=== PATIENT | male | born 1935 | race Caucasian/White ===

== ENCOUNTER 2018-02-11 00:13 | Emergency (ER) | payer MEDICARE ==
[~2018-02-11 00:13] MED LIST: ACET-2743 PO; ALLO100T PO; ASPI-1005 PO; CARV12.511 PO; CERT200K SQ; CHOL200013 PO; DOXA2TAB2 PO; FERR325C PO; FISH1CAP49 PO; FLUT1BLS IH; FOLI1TAB61 PO; GABA300S PO; ISOS30TA6 PO; LEFL20TA18 PO; OMEP20CA10 PO; PRED10TA23 PO; TRAM50TA4 PO; VITA400C70 PO
[2018-02-11] MEDS ORDERED: FENTANYL CITRATE PF 50 MCG/1 ML 2ML VIAL ONE (00:36)
== END 2018-02-11 03:43 | disposition home or self-care (01) ==
LOC: EDH 00:13
DX: S00.83XA Contusion of other part of head, initial encounter (principal); S40.811A Abrasion of right upper arm, initial encounter; S40.212A Abrasion of left shoulder, initial encounter; I25.10 Atherosclerotic heart disease of native coronary artery without angina pectoris; I48.91 Unspecified atrial fibrillation; M06.9 Rheumatoid arthritis, unspecified; Z95.1 Presence of aortocoronary bypass graft; Z88.8 Allergy status to other drugs, medicaments and biological substances; Z88.5 Allergy status to narcotic agent; Z91.013 Allergy to seafood; W18.39XA Other fall on same level, initial encounter; Y93.89 Activity, other specified; Y92.89 Other specified places as the place of occurrence of the external cause; Y99.8 Other external cause status
CPT/HCPCS: 70450; 71045; 72125; 72170; 73110; 96374; 99284; J3010

== ENCOUNTER 2018-02-13 07:59 | Emergency (ER) | payer MEDICARE ==
[2018-02-13 08:34] LABS: BASOPHILS % (AUTO) 0.6 % (0.0-5.0); EOSINOPHILS % (AUTO) 0.9 % (0.0-8.0); HEMATOCRIT 32.7 % (42-54); LYMPHOCYTES % (AUTO) 20.4 % (21.0-51.0); MEAN CORPUSCULAR HEMOGLOBIN 30.9 pg (27.0-33.0); MEAN CORPUSCULAR HGB CONC 34.1 g/dL (32.0-36.0); MEAN CORPUSCULAR VOLUME 90.6 fL (79-99); MONOCYTES % (AUTO) 11.3 % (3.0-13.0); NEUTROPHILS % (AUTO) 66.8 % (40.0-77.0); NUCLEATED RED BLOOD CELLS 0.1 % (0.0-0.19); PLATELET COUNT (AUTO) 126 K/uL (130-400); RED BLOOD CELL COUNT(AUTO) 3.61 MIL/uL (4.50-6.20); RED CELL DISTRIBUTION WIDTH 16.7 % (11.0-15.5); WHITE BLOOD COUNT (AUTO) 6.8 K/uL (4.8-10.8)
[2018-02-13] MEDS ORDERED: IOPAMIDOL-370 100 ML VIAL IV ONE (08:43)
[2018-02-13] MEDS ORDERED: HEPARIN SODIUM 1000UNIT/ML 10ML VIAL ONE (08:43)
[2018-02-13] MEDS ORDERED: ISOVUE-370 50ML VIAL IV ONE (08:43)
[2018-02-13] MEDS ORDERED: BIVALIRUDIN 250 MG/VIAL IV ONE (08:43)
[2018-02-13] MEDS ORDERED: LIDOCAINE HCL 1% 20 ML VIAL ONE (08:44)
[2018-02-13] MEDS ORDERED: PROPOFOL 1000 MG/100 ML 100 ML IV ONE (08:46)
[2018-02-13] MEDS ORDERED: EPINEPHRINE 1 MG/ML 30ML VIAL IJ ONE (08:53)
[2018-02-13 08:54] LABS: CREATININE 3.6 mg/dL (0.5-1.5); TOTAL PROTEIN, SERUM 7.6 g/dL (6.0-8.3)
[2018-02-13] MEDS ORDERED: SODIUM CHLORIDE 0.9% 250 ML IV ONE (08:57)
[2018-02-13] MEDS ORDERED: CALCIUM GLUCONATE 1 GM/10 ML VIAL IV ONE (08:59)
[2018-02-13 09:06] LABS: B-TYPE NATRIURETIC PEPTIDE 1060 pg/mL (0-100)
[2018-02-13] MEDS ORDERED: AMIODARONE HCL 900MG/18ML IV ONE (09:06)
[2018-02-13] MEDS ORDERED: INSULIN HUMULIN R 100 UNIT/ML 3ML ONE (09:08)
[2018-02-13] MEDS ORDERED: AMIODARONE HCL 900 MG in DEXTROSE 5%-WATER 500 ML IV NR (09:11)
[2018-02-13 09:23] LABS: CREATINE KINASE MB 1.5 ng/mL (0.5-3.6)
[2018-02-13] MEDS ORDERED: CALCIUM CHLORIDE 100 MG/ML 10 ML SYG IVP ONE (12:00)
[2018-02-13] MEDS ORDERED: DEXTROSE 50%-WATER 50 ML DISP.SYRIN IV ONE (12:00)
[2018-02-13] MEDS ORDERED: EPINEPHRINE 0.1 MG/ML 10 ML SYG IVP ONE (12:00)
[2018-02-13] MEDS ORDERED: ROCURONIUM BROMIDE 10MG/1ML 5ML VL IV ONE (12:00)
[2018-02-13] MEDS ORDERED: ATROPINE SULFATE 0.1 MG/ML 10 ML SYG IVP ONE (12:00)
[2018-02-13] MEDS ORDERED: SODIUM BICARB 8.4% 50ML SYRINGE IVP ONE (12:00)
[2018-02-13] MEDS ORDERED: AMIODARONE HCL 50 MG/ML 3 ML VIAL IV ONE (12:00)
== END 2018-02-13 11:59 | disposition expired ==
LOC: EDH 07:59
DX: I46.9 Cardiac arrest, cause unspecified (principal); I21.9 Acute myocardial infarction, unspecified; E87.5 Hyperkalemia; I50.9 Heart failure, unspecified; N17.9 Acute kidney failure, unspecified; I48.91 Unspecified atrial fibrillation; I25.10 Atherosclerotic heart disease of native coronary artery without angina pectoris; M06.9 Rheumatoid arthritis, unspecified; Z95.1 Presence of aortocoronary bypass graft; Z88.5 Allergy status to narcotic agent; Z88.8 Allergy status to other drugs, medicaments and biological substances; Z91.013 Allergy to seafood
CPT/HCPCS: 31500; 36415; 71045; 80053; 82270; 82553; 82948; 83880; 84484; 85025; 85378; 87040 ×2; 92950; 93005; 99291; J0171 ×2; J0282 ×2; J0461; J0610; J1815; J2704; J3490 ×3; J7030; J7060; J7070; J0583; J1644; Q9967